=== PATIENT | female | born 1985 | race Caucasian/White ===

== ENCOUNTER 2017-03-15 21:33 | Inpatient (IN) | payer MEDICAID ==
[2017-03-15] MEDS ORDERED: DINOPROSTONE 10 MG VAGINAL INSERT.SR PV PRN (21:58)
[2017-03-15] MEDS ORDERED: RINGERS SOLUTION,LACTATED 300 ML IV ONE (21:58)
[2017-03-15] MEDS ORDERED: OXYTOCIN/NORMAL SALINE 1,000 ML IV PRN (21:58)
[2017-03-15] MEDS ORDERED: DINOPROSTONE 10 MG VAGINAL INSERT.SR ONE (22:40)
[2017-03-15 22:46] LABS: ABSOLUTE EOSINOPHILS # (AUTO) 0.1 10^3/uL (0.0-0.6); ABSOLUTE LYMPHOCYTES (AUTO) 2.4 10^3/uL (0.5-4.7); ABSOLUTE MONOCYTES (AUTO) 0.7 10^3/uL (0.1-1.4); ABSOLUTE NEUT (AUTO) 6.6 10^3/uL (1.7-8.2); BASOPHILS % (AUTO) 0.3 % (0-2); EOSINOPHILS % (AUTO) 0.6 % (0-6); HEMATOCRIT 29.2 % (36.0-47.0); HEMOGLOBIN 9.5 g/dL (12.0-15.5); HGB HCT DIFFERENCE -0.7; LYMPHOCYTES % (AUTO) 24.1 % (13-45); MEAN CORPUSCULAR HEMOGLOBIN 25.8 pg (27.0-33.4); MEAN CORPUSCULAR HGB CONC 32.3 g/dL (32.0-36.0); MEAN CORPUSCULAR VOLUME 80 fl (80-97); MONOCYTES % (AUTO) 7.6 % (3-13); RED BLOOD COUNT 3.66 10^6/uL (3.72-5.28); RED CELL DISTRIBUTION WIDTH 16.2 % (11.5-14.0); SEGMENTED NEUTROPHILS % (AUTO) 67.4 % (42-78); WHITE BLOOD COUNT 9.8 10^3/uL (4.0-10.5)
[2017-03-15 22:58] LABS: ALANINE AMINOTRANSFERASE 34 U/L (9-52); ALBUMIN 3.1 g/dL (3.5-5.0); ALKALINE PHOSPHATASE 210 U/L (38-126); ANION GAP 9 (5-19); ASPARTATE AMINO TRANSFERASE 22 U/L (14-36); BILIRUBIN,TOTAL 0.2 mg/dL (0.2-1.3); BLOOD UREA NITROGEN 10 mg/dL (7-20); CALCIUM 9.1 mg/dL (8.4-10.2); CARBON DIOXIDE 20 mmol/L (22-30); CHLORIDE 106 mmol/L (98-107); CREATININE RESULT 0.57 mg/dL (0.52-1.25); GLUCOSE 70 mg/dL (75-110); POTASSIUM 4.3 mmol/L (3.6-5.0); SODIUM 135.2 mmol/L (137-145); TOTAL PROTEIN 5.9 g/dL (6.3-8.2)
[2017-03-15 23:08] LABS: APPEARANCE,URINE SLIGHTLY-CLOUDY; BILIRUBIN,URINE NEGATIVE (NEGATIVE); GLUCOSE, URINE NEGATIVE (NEGATIVE); KETONES,URINE NEGATIVE (NEGATIVE); LEUKOCYTE ESTERASE,URINE NEGATIVE (NEGATIVE); NITRITE,URINE NEGATIVE (NEGATIVE); PROTEIN,URINE NEGATIVE (NEGATIVE); URINE SPECIFIC GRAVITY 1.009; UROBILINOGEN,URINE NEGATIVE mg/dL (<2.0)
[2017-03-15 23:23] LABS: URINE BARBITURATES SCREEN NEGATIVE; URINE METHADONE SCREEN NEGATIVE; URINE OPIATES LOW NEGATIVE; URINE PHENCYCLIDINE SCREEN NEGATIVE
[2017-03-15] MEDS: RINGERS SOLUTION,LACTATED 1,000 ML IV PRN (23:50)
[2017-03-16] MEDS ORDERED: DIPHENHYDRAMINE HCL 50 MG/ML VIAL ONE (03:37)
[2017-03-16] MEDS ORDERED: OXYTOCIN/NORMAL SALINE 20 UNIT/1,000 ML RTUINJ ONE ×2 (10:49→15:42)
[2017-03-16] MEDS ORDERED: LIDOCAINE 1% INJ-PF (10 MG/ML) 30 ML SDV ONE (15:42)
[2017-03-16] MEDS ORDERED: EPHEDRINE SULFATE INJ 50 MG/1 ML AMPULE ONE (15:42)
[2017-03-16] MEDS ORDERED: BUPIVACAINE HCL 0.25 % INJ/PF (2.5 MG/1 ML) 30 ML VIAL ONE (15:42)
[2017-03-16] MEDS ORDERED: FENTANYL/BUPIVACAINE/NS/PF 200 MCG/100 ML RTUINJ EPI ONE (15:42)
[2017-03-16] MEDS ORDERED: MISOPROSTOL 0.2 MG TABLET ONE (15:42)
[2017-03-16] MEDS ORDERED: DINOPROSTONE 10 MG VAGINAL INSERT.SR PV ONE (20:00)
[2017-03-16 20:57] LABS: AMNISURE (ROM) NEGATIVE (NEGATIVE)
[2017-03-16] MEDS ORDERED: DINOPROSTONE 10 MG VAGINAL INSERT.SR ONE (21:46)
[2017-03-17] MEDS ORDERED: ZOLPIDEM TARTRATE 5 MG TABLET PO ONE (00:11)
[2017-03-17] MEDS ORDERED: FENTANYL/BUPIVACAINE/NS/PF 200 MCG/100 ML RTUINJ EPI ONE (03:18)
[2017-03-17] MEDS ORDERED: BUPIVACAINE HCL 0.25 % INJ/PF (2.5 MG/1 ML) 30 ML VIAL ONE (03:18)
[2017-03-17] MEDS: RINGERS SOLUTION,LACTATED 1,000 ML IV PRN ×2 (03:50→11:51)
[2017-03-17] MEDS ORDERED: OXYTOCIN/NORMAL SALINE 20 UNIT/1,000 ML RTUINJ ONE (09:10)
--- NOTE | 2017-03-17 09:24 | L&D Progress Notes ---
PROGRESS NOTES Datetime Report Generated by CPN: 03/17/2017 09:24 PROGRESS NOTE Impression Other: GDMA2 Procedures- Other: attempted placement of preciado bulb for mechanical dilation Plan: Induction Informed Consent Obtained: Vaginal Delivery; Section Delivery; Risks, Benefits and Alternatives Discussed Comment: FS 70 this am. Failed attempt at preciado bulb for mechanical dilation. Discussed repeat attempt at pit induction and if unable to dilate cervix which is very stenotic. VAGINAL EXAM Dilatation: 0 Effacement: 50 Station: -3 FETUS A FHR Category: Category I : 39.0 Presentation: Vertex SIGNATURE SIGNATURE: [id number] Signature: with User ID: [email or web address] : I personally evaluated and examined the patient in conjunction with the MLP and agree with the assessment, treatment plan and disposition.
[2017-03-17] MEDS ORDERED: CEFAZOLIN 2 GM/D5W RTU 50 ML IV ONE (11:24)
[2017-03-17] MEDS ORDERED: CITRIC ACID/SODIUM CITRATE ORAL SOLN 15 ML UDCUP PO ONE (11:24)
[2017-03-17] MEDS ORDERED: CEFAZOLIN 2 GM/D5W RTU 2 GM/50 ML RTUPB IV ONE ×2 (11:26→20:00)
[2017-03-17] MEDS ORDERED: CITRIC ACID/SODIUM CITRATE ORAL SOLN 15 ML UDCUP ONE (11:26)
[2017-03-17] MEDS ORDERED: LIDOCAINE 2% INJ-PF (20 MG/ML) 10 ML AMPUL ONE ×2 (11:34→11:38)
[2017-03-17] MEDS ORDERED: FENTANYL CITRATE INJ/PF 100 MCG/2 ML AMPUL ONE ×2 (11:35→11:51)
--- NOTE | 2017-03-17 11:35 | L&D Progress Notes ---
PROGRESS NOTES Datetime Report Generated by CPN: 03/17/2017 11:35 PROGRESS NOTE Impression Other: Failed induction Plan: Deliver- Section Informed Consent Obtained: Risks, Benefits and Alternatives Discussed Comment: Pt now on pit 20 mu for over 30 min and no regular ctx. Cervical stenosis precludes mechanical dilation of cervix and head not in pelvis. Discussed r/b/a of with BTL and pt wishes to proceed. Pitocin discontinued. VAGINAL EXAM Dilatation: 0 Effacement: 50 Station: -3 FETUS A FHR Category: Category I FETUS C SIGNATURE: [id number] Signature: with User ID: [email or web address]
[2017-03-17] MEDS ORDERED: ONDANSETRON HCL INJ/PF 4 MG/2 ML SDV ONE ×2 (11:47→13:46)
[2017-03-17] MEDS ORDERED: OXYTOCIN 10 UNIT/ML VIAL ONE (11:47)
[2017-03-17] MEDS ORDERED: MORPHINE SULFATE 10 MG/ML INJ ONE (11:48)
[2017-03-17] MEDS ORDERED: KETAMINE HCL INJ 500 MG/10 ML VIAL ONE (11:54)
[2017-03-17] MEDS ORDERED: MIDAZOLAM 2 MG/2 ML INJ ONE (12:17)
[2017-03-17] MEDS ORDERED: PROMETHAZINE HCL INJ 25 MG/1 ML VIAL IV PRN ×3 (12:50→13:21)
[2017-03-17] MEDS ORDERED: MORPHINE SULFATE 10 MG/ML INJ IV PRN (12:50)
[2017-03-17] MEDS ORDERED: MEPERIDINE HCL/PF INJ 25 MG/1 ML DISP.SYRIN IV PRN (12:50)
[2017-03-17] MEDS ORDERED: DIPHENHYDRAMINE HCL 50 MG/ML VIAL IV PRN (12:50)
[2017-03-17] MEDS ORDERED: FENTANYL CITRATE INJ/PF 100 MCG/2 ML AMPUL IV PRN ×3 (12:50)
--- NOTE | 2017-03-17 13:14 | Operative Report ---
Operative Report DATE OF SURGERY: 03/17/17 PREOPERATIVE DIAGNOSIS: Intrauterine at 39 weeks with GDM A2, failed induction, desire for and permanent sterilization POSTOPERATIVE DIAGNOSIS: Failed induction of labor, gestational diabetes type A 2, desire for permanent sterilization and primary OPERATION: Primary low transverse cervical section with bilateral tubal ligation with Filshie clips SURGEON: SARAH CHEN ANESTHESIA: Epidural TISSUE REMOVED OR ALTERED: Placenta ESTIMATED BLOOD LOSS: 700 mL INTRAOPERATIVE FINDINGS: Rudd male infant in vertex presentation, clear amniotic fluid, Apgars 9 and 9. Normal uterus tubes and ovaries. PROCEDURE: After discussing risks benefits and alternatives of the procedure and obtaining informed consent the patient was taken to the operating room where spinal anesthesia was achieved. She was positioned in the dorsal supine position with a leftward tilt. She was then prepped and draped in the usual standard fashion. Pfannenstiel skin incision was made and the abdomen was entered in layers in the usual standard fashion. The C safe knife was used to make a low- transverse hysterotomy incision. The surgeon's hand was entered into the hysterotomy incision and the vertex elevated and delivered. Shoulders and body were delivered easily thereafter. Nasopharynx and oropharynx were bulb suctioned. Cord was clamped and cut. The was handed to pediatrics who were present. The placenta was manually extracted. The uterus was cleared of all clots and debris. The hysterotomy incision was closed with 0 Monocryl in a running locked fashion. A second layer closure was performed. Excellent hemostasis was observed. A Filshie clip was placed across the isthmic portion of each fallopian tube. The uterus tubes and ovaries were returned to the peritoneal cavity. The cavity was irrigated with saline and hemostasis was again assured. Peritoneum was closed with 2-0 Vicryl in a pursestring fashion. Rectus muscles were loosely reapproximated with interrupted stitches of 2-0 Vicryl. The subfascial space was inspected and noted to be hemostatic. The fascia was closed with #1 Vicryl. The subcutaneous tissues were irrigated and hemostasis assured. 3-O plain gut was used to reapproximate the subcutaneous space which was quite thick. The skin was closed in a subcuticular fashion with 4-0 Monocryl. An OpSite dressing was applied. The patient was taken to recovery in stable condition. All sponge needle lap and instrument counts were correct correct x2.
[2017-03-17] MEDS ORDERED: ACETAMINOPHEN 100 ML IV ONE (13:17)
[2017-03-17] MEDS ORDERED: MEASLES,MUMPS&RUBELLA VACC/PF 0.5 ML VIAL SUBCUT PRN (13:21)
[2017-03-17] MEDS ORDERED: OXYTOCIN/NORMAL SALINE 1,000 ML IV PRN (13:21)
[2017-03-17] MEDS ORDERED: ACETAMINOPHEN 325 MG TABLET PO PRN (13:21)
[2017-03-17] MEDS ORDERED: SIMETHICONE 80 MG TAB.CHEW PO PRN (13:21)
[2017-03-17] MEDS ORDERED: ACETAMINOPHEN 100 ML IV PRN ×2 (13:21→23:00)
[2017-03-17] MEDS ORDERED: DIPH/PERTUSS(ACELL)/TETANUS VAC/PF 0.5 ML SYR (>=10YO) IM PRN (13:21)
[2017-03-17] MEDS ORDERED: OXYCODONE-ACETAMINOPHEN 5-325 MG TABLET PO PRN (13:21)
[2017-03-17] MEDS ORDERED: HYDROMORPHONE HCL INJ/PF 2 MG/ML AMPULE ONE ×2 (13:23→13:24)
[2017-03-17] MEDS: ONDANSETRON HCL INJ/PF 4 MG/2 ML SDV IV PRN ×2 (13:46→14:24)
--- NOTE | 2017-03-17 14:15 | Delivery Summary ---
Del Sum A-C Datetime Report Generated by CPN: 03/17/2017 14:14 DELIVERY PERSONNEL DELIVERY PERSONNEL: [id number] Delivery Doctor:: Joanie Santiago MD Anesthesiologist:: Hugo Reynaga MD FORMING PROCESS WORKER:: Emiliano Almanza CRNA Labor and Delivery Nurse:: Fatou Gutiérrez RN Nurses Superintendent:: Elisa Lemos RN Director Weights And Measures:: Lorenzo Lemus MD Nursery Nurse:: Shiela Dillard RN Closing Specialist/WOODS LABORER: Blanquita Jacinto CST Closing Specialist/WOODS LABORER: Ernst Michael COMMISSIONING MANAGER MATERNAL INFORMATION Delivery Anesthesia: Epidural Medications After Delivery: Pitocin Bolus-Please Comment Meds After Delivery Comment: Pitocin 20 units in 1000mL NS Cytotec 1000 mcg IL Estimated Blood Loss (ml): 600 Maternal Complications: Other Other Maternal Complications: GDM LABOR SUMMARY EDC: 03/23/2017 00:00 No. Babies in Womb: 1 Attempted: No Labor Anesthesia: Epidural LABOR INFORMATION Reason for Induction: Maternal Diabetes Onset of Labor: 03/17/2017 16:57 Cervical Ripening Agents: Cervidil Oxytocin: Induction Group B Beta Strep: negative Antibiotics # of Doses: 0 Steroids Given: None Reason Steroids Not Administered: Not Applicable MEMBRANES Membranes Rupture Method: Artificial Rupture of Membranes: 03/17/2017 12:19 Length of Rupture (hr): 0.00 Amniotic Fluid Color: Clear Amniotic Fluid Amount: Small Amniotic Fluid Odor: Normal STAGES OF LABOR Stage 3 hr: 0 Stage 3 min: 1 Total Time in Labor hr: -4 Total Time in Labor min: -37 VAGINAL DELIVERY Sponge Count Correct: N/A CSECTION DELIVERY Primary Indication: Failed Induction CSection Urgency: Non-Scheduled CSection Incidence: Primary Labor: Labor Elective: Nonelective CSection Incision: Lower Uterine Transverse BABY A INFORMATION Delivery Date/Time: 03/17/2017 12:19 Method of Delivery: Born in Route : No : N/A Forceps: N/A Vacuum Extraction: N/A Shoulder Dystocia : No PRESENTATION/POSITION BABY A Presentation: Cephalic Cephalic Presentation: Vertex Vertex Position: Right Occipital Anterior Breech Presentation: N/A PLACENTA INFORMATION BABY A Placenta Delivery Time : 03/17/2017 12:20 Placenta Method of Delivery: Manual Removal Placenta Status: Delivered SCORES BABY A Heart Rate 1 min: >100 bpm Resp Effort 1 min: Good Cry Reflex Irritability 1 min: Cough or Sneeze or Pulls Away Muscle Tone 1 min: Active Motion Color 1 min: Body [place], Extremities Blue Resuscitation Effort 1 min: Tactile Stimulation SCORE 1 MIN: 9 Heart Rate 5 min: >100 bpm Resp Effort 5 min: Good Cry Reflex Irritability 5 min: Cough or Sneeze or Pulls Away Muscle Tone 5 min: Active Motion Color 5 min: Body [place], Extremities Blue Resuscitation Effort 5 min: Tactile Stimulation SCORE 5 MIN: 9 INFANT INFORMATION BABY A Gestational Age at Delivery: 39.1 Gestational Status: Full Term- 39- 40.6 Weeks Outcome : Liveborn Condition : Stable Sex: Male IDENTIFICATION BABY A ID Band Number: [id number] Mother's Name Verified: Yes RN Verifying Infant: Sherrie LemosGENE Additional Verifying Personnel: ST Crystal (Annotations: Data stored by Saba on behalf of user) WEIGHT/LENGTH BABY A Infant Birthweight (gm): 2765 Weight (lb): 6 Weight (oz): 2 Length (in): 18.50 Infant Length (cm): 46.99 CORD INFORMATION BABY A No. Cord Vessels: 3 Nuchal Cord : N/A Cord Blood Taken: Yes-For Storage (Mom's Blood type +) Suction: Mouth; Nose ASSESSMENT BABY A Complications: None Physical Findings at Delivery: Within Normal Limits Infant Respirations: Appears Normal Skin to Skin: Yes Skin to Skin Time (min): 3 Director Weights And Measures/ALS Called : Yes Care By: Kanika Dillard RN Transferred To: Nursery BABY B INFORMATION : N/A SIGNATURES : I personally evaluated and examined the patient in conjunction with the P and agree with the assessment, treatment plan and disposition.
[2017-03-17] MEDS ORDERED: DIPHENHYDRAMINE HCL 50 MG/ML VIAL ONE (14:24)
[2017-03-17] MEDS: OXYCODONE-ACETAMINOPHEN 5-325 MG TABLET PO PRN ×2 (16:02→20:06)
[2017-03-17] MEDS: DOCUSATE SODIUM 100 MG CAPSULE PO SCH (17:33)
[2017-03-18] MEDS ORDERED: IBUPROFEN 800 MG TABLET PO ONE
[2017-03-18] MEDS: OXYCODONE-ACETAMINOPHEN 5-325 MG TABLET PO PRN ×4 (03:41→22:19)
[2017-03-18 06:51] LABS: HEMATOCRIT 22.5 % (36.0-47.0); MEAN CORPUSCULAR HEMOGLOBIN 26.4 pg (27.0-33.4); MEAN CORPUSCULAR HGB CONC 33.1 g/dL (32.0-36.0); MEAN CORPUSCULAR VOLUME 80 fl (80-97); RED BLOOD COUNT 2.83 10^6/uL (3.72-5.28); WHITE BLOOD COUNT 7.2 10^3/uL (4.0-10.5)
[2017-03-18 06:58] LABS: HEMOGLOBIN 7.5 g/dL (12.0-15.5)
[2017-03-18] MEDS: BUSPIRONE HCL 10 MG TABLET PO SCH (09:15)
[2017-03-18] MEDS: IBUPROFEN 800 MG TABLET PO SCH ×4 (09:15→22:18)
[2017-03-18] MEDS: DOCUSATE SODIUM 100 MG CAPSULE PO SCH ×2 (09:16→17:06)
[2017-03-18] MEDS: VENLAFAXINE HCL 75 MG CAP.SR.24H PO SCH (09:21)
[2017-03-18] MEDS: LANSOPRAZOLE 30 MG TAB.RAP.DR PO SCH (09:21)
[2017-03-18] MEDS: PRENATAL VITAMIN W-O CA NO5/FE FUMARATE/FA CAPSULE PO SCH (09:21)
[2017-03-18] MEDS: FAMOTIDINE 20 MG TABLET PO SCH ×2 (09:21→17:06)
[2017-03-18] MEDS: FERROUS SULFATE 325 MG TABLET PO SCH ×2 (09:21→17:06)
[2017-03-18] MEDS ORDERED: PRENATAL VITAMIN W-O CA NO5/FE FUMARATE/FA CAPSULE PO SCH (10:00)
[2017-03-18] MEDS ORDERED: VENLAFAXINE HCL 37.5 MG CAP.SR.24H PO SCH (10:00)
[2017-03-18] MEDS ORDERED: OXYCODONE HCL IR 5 MG TABLET PO ONE (10:15)
--- NOTE | 2017-03-18 10:47 | PDOC PROGRESS REPORT ---
Subjective-OB Subjective: Post Delivery Day: 32 year old. Denies any needs at this time Physical Exam (OB) Vital Signs: Temp Pulse Resp BP Pulse Ox 98.0 F 92 16 118/68 97 03/18/17 08:19 03/18/17 08:19 03/18/17 08:19 03/18/17 08:19 03/18/17 08:19 Intake & Output 03/17/17 03/18/17 03/19/17 06:59 06:59 06:59 Intake Total 375 240 Output Total 1600 Balance -1225 240 - Dressing Removed: No Incision: Dressing, Well Approximated Closure Type: opsite - Bilateral Tubal Ligation Dressing Removed: No - opsite dressing in place Site: Dressing - Lochia Lochia Amount: Scant < 10 ml Lochia Color: Rubra/Red - Abdomen Description: Tender, Soft, Round Hernia Present: No Bowel Sounds: Normoactive Flatus Presence: Present Stool: No Fundal Description: Firm, Midline Fundal Height: u/u - u/2 Objective-Diagnostic Laboratory: 03/18/17 06:04 03/15/17 22:10 03/18/17 06:04 WBC 7.2 RBC 2.83 L Hgb 7.5 L Hct 22.5 L MCV 80 MCH 26.4 L MCHC 33.1 RDW 16.0 H Plt Count 184
[2017-03-19] MEDS: OXYCODONE-ACETAMINOPHEN 5-325 MG TABLET PO PRN ×2 (02:23→07:36)
[2017-03-19] MEDS: IBUPROFEN 800 MG TABLET PO SCH (05:03)
[2017-03-19 08:28] VITALS: BP 133/76
--- NOTE | 2017-03-19 09:05 | PDOC DISCHARGE SUMMARY ---
Final Diagnosis Discharge Date: 03/19/17 - Final Diagnosis (1) Delivery by elective caesarean section Is this a current diagnosis for this admission?: Yes (2) Anemia Is this a current diagnosis for this admission?: Yes (3) Anxiety Is this a current diagnosis for this admission?: Yes (4) Depression Is this a current diagnosis for this admission?: Yes Discharge Data - Discharge Medication Home Medications: Ferrous Sulfate [Feosol 325 mg Tablet] 325 mg PO BID #60 tablet 07/22/15 Buspirone HCl [Buspar 5 mg Tablet] 1.5 tab PO DAILY 03/15/17 Esomeprazole Magnesium [Nexium] 40 mg PO DAILY 03/15/17 [id number]/FA/Omega3/Dha/Fish Oil [ Gummies] 2 each PO DAILY 03/15/17 Ranitidine HCl [Zantac 150 mg Tablet] 150 mg PO BID 03/15/17 Venlafaxine HCl ER [Effexor Xr 37.5 mg Cap.sr] 2 tab PO DAILY 03/15/17 Docusate Sodium [Colace 100 mg Capsule] 100 mg PO BID #60 capsule 03/19/17 Ibuprofen [Motrin 800 mg Tablet] 800 mg PO Q8 #60 tablet 03/19/17 Oxycodone HCl/Acetaminophen [Percocet 5-325 mg Tablet] 2 tab PO Q4HP PRN #30 tablet 03/19/17 Gestational Age: 39.1 Reason(s) for Admission: Induction of Labor, Gestional Diabetes Procedures: NST Intrapartum Procedure(s): : Low Cervical, Transverse - [place] Data Baby 1 Male at 1 minute: 9 at 5 minutes: 9 Weight: 2765 kg Home with Mother: Yes Complications: No - Diagnosis Test Laboratory: Temp Pulse Resp BP Pulse Ox 97.9 F 99 18 133/76 H 99 03/19/17 08:15 03/19/17 08:15 03/19/17 08:15 03/19/17 08:00 03/19/17 08:15 03/15/17 03/15/17 03/18/17 21:55 22:10 06:04 RBC 3.66 L 2.83 L Hgb 9.5 L 7.5 L Hct 29.2 L 22.5 L Urine Opiates Screen NEGATIVE - Discharge information/Instructions Discharge Activity: Activity As Tolerated, No Driving, No Lifting Over 10 Pounds , No Lifting/Push/Pulling, Pelvic Rest, No tub bath Discharge Diet: Regular Disposition: HOME, SELF-CARE Follow up with: [facility] in: 1, Weeks
[2017-03-19] MEDS: FERROUS SULFATE 325 MG TABLET PO SCH (09:33)
[2017-03-19] MEDS: PRENATAL VITAMIN W-O CA NO5/FE FUMARATE/FA CAPSULE PO SCH (09:33)
[2017-03-19] MEDS: DOCUSATE SODIUM 100 MG CAPSULE PO SCH (09:33)
[2017-03-19] MEDS: FAMOTIDINE 20 MG TABLET PO SCH (09:33)
[2017-03-19] MEDS: LANSOPRAZOLE 30 MG TAB.RAP.DR PO SCH (09:33)
[2017-03-19] MEDS: BUSPIRONE HCL 10 MG TABLET PO SCH (09:34)
[2017-03-19] MEDS: VENLAFAXINE HCL 75 MG CAP.SR.24H PO SCH (09:34)
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
== END 2017-03-19 12:04 | disposition home or self-care (01) | DRG 765 ==
LOC: LR 21:33 → 2S 03-17 15:25
PROVIDERS: ADMIT Specialist; ATTEND Specialist
PROC: 10D00Z1 Extraction of Products of Conception, Low, Open Approach (ICD-10-PCS; principal; 2017-03-17)
PROC: 0UL70CZ Occlusion of Bilateral Fallopian Tubes with Extraluminal Device, Open Approach (ICD-10-PCS; 2017-03-17)
PROC: 10907ZC Drainage of Amniotic Fluid, Therapeutic from Products of Conception, Via Natural or Artificial Opening (ICD-10-PCS; 2017-03-17)
DX: O24.425 Gestational diabetes mellitus in childbirth, controlled by oral hypoglycemic drugs (principal); Z68.43 Body mass index [BMI] 50.0-59.9, adult; O99.214 Obesity complicating childbirth; O99.344 Other mental disorders complicating childbirth; O61.9 Failed induction of labor, unspecified; F41.9 Anxiety disorder, unspecified; E66.01 Morbid (severe) obesity due to excess calories; O99.02 Anemia complicating childbirth; D64.9 Anemia, unspecified; Z3A.39 39 weeks gestation of pregnancy; Z37.0 Single live birth; Z30.2 Encounter for sterilization; O75.89 Other specified complications of labor and delivery; K43.9 Ventral hernia without obstruction or gangrene; F10.21 Alcohol dependence, in remission
CPT/HCPCS: 1961; 36415; 80053; 80307; 81005; 82962; 84112; 85025; 85027; 86592; 86850; 86900; 86901; 88307; 94760; 94799; J0131; J0690; J1170; J1200; J2250; J2270; J2405; J2590; J3010; J3490

== ENCOUNTER 2017-03-21 12:45 | Emergency (ER) | payer MEDICAID ==
[2017-03-21 13:05] VITALS: BP 149/94
[2017-03-21] MEDS ORDERED: SULFAMETHOXAZOLE/TRIMETHOPRIM 800-160 MG TABLET PO ONE (13:18)
--- NOTE | 2017-03-21 13:24 | ER Document Report ---
ED Wound - General Chief Complaint: Post Surgical Pain Stated Complaint: POST OP ISSUE Time seen by provider: 13:20 Mode of Arrival: Wheelchair Information source: Patient TRAVEL OUTSIDE OF THE [place] IN LAST 30 DAYS: No - HPI Patient complains to provider of: Incision problem Occurred: This morning Onset/Duration: Sudden Quality of pain: Achy Severity: Mild Pain Level: 1 Skin Color: Erythema Sensations intact: Yes Distal pulses present: Yes Associated Symptoms: Drainage Notes: Patient is a 32-year-old female who is 6 days post section, complaining of drainage from the right side of her wound, with odor, and possible wound dehiscence, denies any fever, no nausea or vomiting, has a follow-up with MATERIAL SCHEDULER on Sunday of next week, patient is G3, P3 but this was her first section, reports normal vaginal discharge - Related Data Allergies/Adverse Reactions: No Known Allergies Allergy (Verified 03/21/17 13:02) Past Medical History - General Information source: Patient - Social History Smoking Status: Never Smoker Family History: Reviewed & Not Pertinent Patient has suicidal ideation: No Patient has homicidal ideation: No Renal/ Medical History: Denies: Hx Peritoneal Dialysis Review of Systems - Review of Systems Constitutional: No symptoms reported EENT: No symptoms reported Cardiovascular: No symptoms reported Respiratory: No symptoms reported Gastrointestinal: No symptoms reported Genitourinary: No symptoms reported Female Genitourinary: No symptoms reported Musculoskeletal: No symptoms reported Skin: See HPI Hematologic/Lymphatic: No symptoms reported Neurological/Psychological: No symptoms reported -: Yes All other systems reviewed and negative Physical Exam - Vital signs Vitals: Temp Pulse Resp BP Pulse Ox 98.3 F 98 18 149/94 H 100 03/21/17 13:03 03/21/17 13:03 03/21/17 13:03 03/21/17 13:03 03/21/17 13:03 Interpretation: Hypertensive - Notes Notes: - General General appearance: Appears well, Alert In distress: None - HEENT Head: Normocephalic, Atraumatic Eyes: Normal Conjunctiva: Normal Extraocular movements intact: Yes Eyelashes: Normal Pupils: PERRL - Respiratory Respiratory status: No respiratory distress - Cardiovascular Rhythm: Regular - Abdominal Inspection: Patient with section healing incision, small 0.5 cm area of dehiscence on the right lateral portion of the incision, with serosanguineous drainage with slight odor, mild surrounding erythema - Back Back: Normal - Extremities General upper extremity: Normal inspection General lower extremity: Normal inspection - Neurological Neuro grossly intact: Yes Orientation: AAOx4 [place] Coma Scale Eye Opening: Spontaneous [place] Coma Scale Verbal: Oriented [place] Coma Scale Motor: Obeys Commands Umesh Coma Scale Total: 15 - Psychological Associated symptoms: Normal affect, Normal mood - Skin Skin Temperature: Warm Skin Moisture: Dry Skin Color: Normal Course - Re-evaluation Re-evalutation: 03/21/17 13:22 Patient with signs and symptoms of possible wound infection from recent section, started on antibiotics, dressing was changed in the emergency room, she was given wound care in structure and as well as instructions for follow-up and advised to return if symptoms worsen, patient acknowledges understanding and agreement with this plan - Vital Signs Vital signs: Temp Pulse Resp BP Pulse Ox 98.3 F 98 18 149/94 H 99 03/21/17 13:04 03/21/17 13:04 03/21/17 13:04 03/21/17 13:04 03/21/17 13:04 Discharge - Discharge Clinical Impression: Wound dehiscence Incisional infection Qualifiers: Encounter type: initial encounter Qualified Code(s): T81.4XXA - Infection following a procedure, initial encounter Condition: Stable Disposition: HOME, SELF-CARE Instructions: Dressing Instructions for Open Wounds ([facility]), Wound Infection ([facility] ) Additional Instructions: Follow-up with MAT[facility] SCHEDULER within the next 2-3 days. Take antibiotics as prescribed. Return to emergency room immediately if symptoms worsen or any additional concerns. Prescriptions: Sulfamethoxazole/Trimethoprim [Bactrim Ds Tablet] 1 each PO BID #20 tablet
== END 2017-03-21 13:38 | disposition home or self-care (01) ==
LOC: ER 12:45
DX: O9A.23 Injury, poisoning and certain other consequences of external causes complicating the puerperium (principal); T81.31XA Disruption of external operation (surgical) wound, not elsewhere classified, initial encounter; Y83.8 Other surgical procedures as the cause of abnormal reaction of the patient, or of later complication, without mention of misadventure at the time of the procedure; O86.0 Infection of obstetric surgical wound
CPT/HCPCS: 99283; J3490

== ENCOUNTER 2017-10-24 13:15 | Day surgery (SDC) | payer MEDICAID ==
[2017-10-17 10:24] LABS: HEMOGLOBIN 12.3 g/dL (12.0-15.5); HGB HCT DIFFERENCE -0.1; MEAN CORPUSCULAR HGB CONC 33.2 g/dL (32.0-36.0); MEAN CORPUSCULAR VOLUME 78 fl (80-97); RED BLOOD COUNT 4.74 10^6/uL (3.72-5.28); RED CELL DISTRIBUTION WIDTH 16.3 % (11.5-14.0); WHITE BLOOD COUNT 6.4 10^3/uL (4.0-10.5)
[~2017-10-24 13:15] MED LIST: ACETAMINOPHEN 325 MG TABLET PO PRN; BUPIVACAINE HCL 0.25 % INJ/PF (2.5 MG/1 ML) 30 ML VIAL ONE; CEFAZOLIN 1 GM/D5W RTU 1 GM/50 ML RTUPB IV PRN; DEXAMETHASONE SOD PHOSPHATE INJ 4 MG/1 ML VIAL ONE; GLYCOPYRROLATE INJ 0.4 MG/2 ML VIAL ONE; KETOROLAC TROMETHAMINE 60 MG/2 ML SDV ONE; LACTATED RINGERS 1000 ML IV PRN; METOCLOPRAMIDE HCL INJ/PF 10 MG/2 ML SDV ONE; ONDANSETRON HCL INJ/PF 4 MG/2 ML SDV ONE; SUCCINYLCHOLINE CHLORIDE INJ 200 MG/10 ML VIAL ONE
[2017-10-24] MEDS ORDERED: LIDOCAINE 2% INJ-PF (20 MG/ML) 10 ML AMPUL ONE (14:15)
[2017-10-24] MEDS ORDERED: ACETAMINOPHEN 100 ML IV ONE (14:15)
[2017-10-24] MEDS ORDERED: PROPOFOL INJ 200 MG/20 ML VIAL IV ONE (14:15)
[2017-10-24] MEDS ORDERED: MIDAZOLAM 2 MG/2 ML INJ ONE (14:15)
[2017-10-24] MEDS ORDERED: FENTANYL CITRATE INJ/PF 100 MCG/2 ML AMPUL ONE (14:15)
[2017-10-24] MEDS ORDERED: HYDROMORPHONE HCL INJ/PF 2 MG/ML AMPULE ONE (14:16)
[2017-10-24] MEDS ORDERED: MEPERIDINE HCL/PF INJ 25 MG/1 ML DISP.SYRIN IV PRN (15:25)
[2017-10-24] MEDS ORDERED: OXYCODONE-ACETAMINOPHEN 5-325 MG TABLET PO PRN ×3 (15:25→16:04)
[2017-10-24] MEDS ORDERED: FENTANYL CITRATE INJ/PF 100 MCG/2 ML AMPUL IV PRN ×3 (15:25)
[2017-10-24] MEDS ORDERED: MORPHINE SULFATE 10 MG/ML INJ IV PRN (15:25)
[2017-10-24] MEDS ORDERED: DIPHENHYDRAMINE HCL 50 MG/ML VIAL IV PRN (15:25)
[2017-10-24] MEDS ORDERED: ONDANSETRON HCL INJ/PF 4 MG/2 ML SDV IV PRN ×2 (15:25→16:05)
[2017-10-24] MEDS ORDERED: PROMETHAZINE HCL INJ 25 MG/1 ML VIAL IV PRN ×2 (15:25)
--- NOTE | 2017-10-24 16:04 | PDOC DISCHARGE SUMMARY ---
Discharge Summary (SDC) - Discharge Final Diagnosis: ventral and umbilical hernia Date of Surgery: 10/24/17 Discharge Date: 10/24/17 Condition: Stable Treatment or Instructions: [facility] [address], [place] [address] Discharge Instructions: Laparoscopic Surgery 1. General Information: a. DO NOT DRIVE a car or operate dangerous machinery for 3-4 days or while taking narcotic pain pills. b. DO NOT consume alcohol, tranquilizers, sleeping medications or any non- prescribed medications for 24 hours unless approved by your doctor or as long as taking narcotic prescription medications. c. DO NOT make important decisions or sign any important papers for the first 24 hours after surgery. d. When discharged home the same day of surgery have a responsible person with you for the first night. 2. Activity Restrictions: 8weeks. a. NO heavy lifting, straining abdominal muscles, bending over a lot, yard work, house work, or sports for [address] for 3-4 days c. It is fine to go for walks, up and down steps, ride in a car. d. Elevate your head when sleeping/resting. 3. Treatment: a. You may shower 24 hours after surgery, no baths or swimming for 2 weeks. Remove band-aids or dressings before shower but leave paper strips (steri-strips ) on the skin to fall off on their own. If still on at postoperative visit they will be removed then. b. Drainage of fluid or blood is not unusual from an incision. If occurs, you can clean with peroxide and cotton ball daily and cover with dry gauze until the wound seals. c. If a lot of bleeding occurs, you can hold pressure with a gauze or cloth over the site for 10 minutes and it will usually stop. If bleeding continues you will need to call for possible evaluation in office or emergency room. 4. Medications: a. _Toradol_ may be taken for pain as needed, one tablet every 6 hours. Stop the narcotic when able since you cannot take it and drive, and they cause constipation. You may switch to plain Tylenol, Advil or Aleve as you transition from the narcotic. Many adults find good pain relief with Advil 600-800 mg three times a day with meals. This can cause indigestion, ulcers, and kidney problems with long-term use. b. You should resume all normal medications unless a change is specified by your doctors. 5. Diet: Begin with clear liquids and may progress to your normal diet if not nauseated. No high fat, high protein foods the day of surgery. 6. The following may occur after laparoscopic surgery: a. Shoulder or upper back ache from retained gas that should resolve in 1-2 days b. Soreness and bruising at incision sites will resolve with time. c. Scrotal swelling (labia in women) and bruising is often seen after hernia surgery. d. Sore throat e. Fatigue may last days to weeks. f. Difficulty urinating may occur and may need to come into emergency room for urinary catheter placement. 7. Notify Physician If: a. Worsening or pain not improved with pain medication b. Persistent nausea and vomiting c. Fever above 101 d. Persistent bleeding or swelling at operative site e. Unable to urinate and uncomfortable bladder 6-8 hours after surgery 8..Follow Up Care: a. Schedule a follow up appointment with your doctor for 2 weeks. In the event of any postoperative problems or questions or you may call the office during business hours or the On-Call physician evenings and weekends at [facility]. [facility] I understand the instructions for my postoperative care as described above and a copy has been given to me. Patient/Significant Other Witness Date Prescriptions: Ketorolac Tromethamine [Toradol 10 mg Tablet] 10 mg PO Q6HP PRN #25 tablet PRN Reason: Referrals: BRISEYDA LANDRY PA-C [Primary Care Provider] - Discharge Diet: As Tolerated Discharge Activity: No Lifting Over 10 Pounds, No Lifting/Push/Pulling, Walk Frequently Report the Following to Your Physician Immediately: Nausea, Vomiting, Fever over 101 Degrees, Unusual Bleeding, Redness, Drainage-Foul Smelling
[2017-10-24] MEDS ORDERED: ATROPINE SULFATE INJ 1 MG/10 ML DISP.SYRIN IV ONE (16:11)
--- NOTE | 2017-10-24 16:11 | Operative Report ---
Operative Report DATE OF SURGERY: 10/24/17 PREOPERATIVE DIAGNOSIS: Supraumbilical hernia POSTOPERATIVE DIAGNOSIS: Same with accessory umbilical hernia OPERATION: Laparoscopic primary supraumbilical and small umbilical ventral wall hernias with mesh reinforcement, intraperitoneal position SURGEON: LENA REECE 1ST UTILITY TELLER: FREDRICK PATEL ANESTHESIA: GA TISSUE REMOVED OR ALTERED: None COMPLICATIONS: None ESTIMATED BLOOD LOSS: Scant INTRAOPERATIVE FINDINGS: See below PROCEDURE: Patient was seen in the preop holding area, then taken to the main operating room where general anesthesia was induced. Arms were abducted, and the abdominal wall exposed, prepped and draped in sterile fashion. Surgical plan and surgical timeout Markings were made on the skin for 3 port laparoscopy. Skin was anesthetized with quarter percent Marcaine. A left upper quadrant stab was made with 11 blade, Veress needle inserted the peritoneal cavity pneumoperitoneum was established. Veress needle was removed, and a 5 mm port was inserted and a 5 mm viewing scope was inserted. Under direct visualization, 2 additional 5 mm ports were placed one in the left lower quadrant and one in the right mid field. Findings were significant for large incarcerated omentum stuck in the supraumbilical hernia. Using a combination of traction, and extracorporeal manipulation, the hernia was completely reduced at the incarcerated omentum. There was no bleeding or injury to the omentum or the small intestine. Of note a smaller hernia was identified right at the level of the umbilicus, approximately 5-7 mm in diameter. It was reduced of some incarcerated fat. Her graft complete inspection of the intra-abdominal wall revealed no other hernias. We now elected to close the supraumbilical fascial defect transversely with 2 [id number] #1 PDS sutures and this was affected by making a small donny in the skin over the hernia, and using the suture passer, threading the #1 PDS suture in a [id number] fashion, closing the defect transversely. This approximated the fascia very satisfactorily. We now brought onto the field an unexpired 15 cm parietex prosthetic mesh. It was marked, and secured with sutures at the 12, 3, 6, 9:00 positions 0 PDS suture. A moistened mesh, rolled, brought to the anterior abdominal wall at the right mid port site position. The mesh was on rolled and brought up to the anterior abdominal wall using the suture passer placing it in the intraperitoneal position. We then secured all of the sutures with knots at the respective positions. We then secured the mesh in a circumferential fashion with tacker; all sites were secured; final photos taken We checked for bleeding and there was none. We removed all ports, and evacuated all CO2; ports removed; all wounds closed with 3-0 vicryl and steri-strips. Pt extubated and taken to recovery room in stable condition. The physician wellness assistant, Ms. Valiente, provided assistance during this case by: Assisting and port insertion, retracting tissue, instillation of local anesthesia and closure of skin incisions.
[2017-10-24] MEDS: FENTANYL CITRATE INJ/PF 100 MCG/2 ML AMPUL ONE ×2 (16:19→16:24)
[2017-10-24 18:52] VITALS: BP 127/80
== END 2017-10-24 18:35 | disposition home or self-care (01) ==
LOC: OROUT 13:15
PROVIDERS: ATTEND Surgery
PROC: 0WUF4JZ Supplement Abdominal Wall with Synthetic Substitute, Percutaneous Endoscopic Approach (ICD-10-PCS; principal; 2017-10-24 15:00)
DX: K43.9 Ventral hernia without obstruction or gangrene (principal); F32.9 Major depressive disorder, single episode, unspecified; E66.9 Obesity, unspecified; F41.9 Anxiety disorder, unspecified; Z87.891 Personal history of nicotine dependence; Z79.899 Other long term (current) drug therapy; Z68.38 Body mass index [BMI] 38.0-38.9, adult
CPT/HCPCS: 36415; 85027; 81025; 49652; C1781; J2250; J0461; J0690; J1100; J1885; J3010; J3490 ×2; J2765; J1170; J0330; J2405; S0020; J2704; J0131; 752